=== PATIENT | male | born 2000 | race Caucasian/White ===

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

== ENCOUNTER 2022-02-08 12:24 | Observation (INO) | payer OTHER ==
[~2022-02-08] VITALS: Ht 177.8 cm; Wt 79.5 kg
[2022-02-08] MEDS ORDERED: ONDANSETRON 4MG 2ML VIAL IV ONE (14:15)
[2022-02-08] MEDS ORDERED: NS 2,390 ML in IV 1 EA IV ONE (14:15)
[2022-02-08 14:41] LABS: HEMATOCRIT 50.5 % (42.0-52.0); HEMOGLOBIN 17.1 g/dl (13.5-17.5); MEAN CORPUSCULAR HEMOGLOBIN 30.1 pg (27.0-33.0); MEAN CORPUSCULAR HGB CONC 33.9 g/dl (32.0-36.5); MEAN CORPUSCULAR VOLUME 88.9 fl (80.0-96.0); PLATELET COUNT, AUTOMATED 245 10^3/uL (150-450); RED BLOOD COUNT 5.68 10^6/uL (4.30-6.10); WHITE BLOOD COUNT 5.8 10^3/uL (4.0-10.0)
[2022-02-08 14:58] LABS: LIPASE 24 U/L (12-53)
[2022-02-08 15:00] LABS: ALBUMIN 4.3 G/DL (3.2-5.2); ALKALINE PHOSPHATASE 64 U/L (46-116); ALT/SGPT 19 U/L (7.0-40); AST/SGOT 11 U/L (<34); BILIRUBIN,DIRECT 0.4 MG/DL (<0.4); BILIRUBIN,TOTAL 1.2 MG/DL (0.3-1.2); BLOOD UREA NITROGEN 25 MG/DL (9-23); CALCIUM LEVEL 8.8 MG/DL (8.5-10.1); CARBON DIOXIDE LEVEL 26 MMOL/L (20-31); CHLORIDE LEVEL 99 MMOL/L (98-107); CREATININE FOR GFR 0.81 MG/DL (0.70-1.30); GLOMERULAR FILTRATION RATE > 60.0 (>60); GLUCOSE, FASTING 119 MG/DL (60-100); POTASSIUM SERUM 4.2 MMOL/L (3.5-5.1); SODIUM LEVEL 137 MMOL/L (136-145); TOTAL PROTEIN 7.1 G/DL (5.7-8.2)
[2022-02-08 15:15] LABS: RSV AMPLIFICATION NEGATIVE (NEGATIVE)
[2022-02-08 15:16] LABS: ATYPICAL LYMPH 3 % (0-5); LYMPHOCYTES 7 % (16-44); METAMYELOCYTES 1 % (0-0); MONOCYTES 15 % (0-5); NEUTROPHILS 7 % (28-66)
[2022-02-08 15:19] LABS: PLATELET ESTIMATE NORMAL (NORMAL)
[2022-02-08] MEDS ORDERED: ISOVUE-370 76% 100ML VIAL As Ordered ONE (15:50)
[2022-02-08] MEDS ORDERED: HOME MED LIST COMPLETE! XX SCH (17:45)
[2022-02-08] MEDS ORDERED: ONDANSETRON 4MG 2ML VIAL IV PRN (17:55)
[2022-02-08] MEDS ORDERED: AZITHROMYCIN INJ 500 MG, VIAL MATE ADAPTER 1 EACH in NS 250 ML IV ONE (18:30)
[2022-02-08] MEDS: LR 1,000 ML IV SCH (18:45)
[2022-02-09] MEDS: LR 1,000 ML IV SCH (04:00)
[2022-02-09] MEDS ORDERED: AZITHROMYCIN INJ 500 MG, VIAL MATE ADAPTER 1 EACH in NS 250 ML IV ONE (07:10)
[2022-02-09] MEDS ORDERED: ONDANSETRON 4MG 2ML VIAL IV ONE (07:15)
[2022-02-09 07:30] VITALS: BP 124/58
[2022-02-09 07:34] LABS: HEMATOCRIT 42.6 % (42.0-52.0); MEAN CORPUSCULAR HEMOGLOBIN 30.5 pg (27.0-33.0); MEAN CORPUSCULAR VOLUME 89.7 fl (80.0-96.0); PLATELET COUNT, AUTOMATED 217 10^3/uL (150-450); RED BLOOD COUNT 4.75 10^6/uL (4.30-6.10); WHITE BLOOD COUNT 4.7 10^3/uL (4.0-10.0)
[2022-02-09 07:38] LABS: BLOOD UREA NITROGEN 16 MG/DL (9-23); CALCIUM LEVEL 8.1 MG/DL (8.5-10.1); CARBON DIOXIDE LEVEL 25 MMOL/L (20-31); CHLORIDE LEVEL 106 MMOL/L (98-107); CREATININE FOR GFR 0.79 MG/DL (0.70-1.30); GLOMERULAR FILTRATION RATE > 60.0 (>60); GLUCOSE, FASTING 89 MG/DL (60-100); HEMOGLOBIN 14.5 g/dl (13.5-17.5); SODIUM LEVEL 140 MMOL/L (136-145)
[2022-02-09 08:20] LABS: ATYPICAL LYMPH 4 % (0-5); BASOPHILS 1 % (0-1); LYMPHOCYTES 28 % (16-44); MONOCYTES 20 % (0-5); NEUTROPHILS 34 % (28-66)
[2022-02-09 08:22] LABS: PLATELET ESTIMATE NORMAL (NORMAL)
[2022-02-09] MEDS ORDERED: ONDA4TAB6 PO (08:40)
[2022-02-09] MEDS ORDERED: AZIT-12 PO (08:41)
[2022-02-09] MEDS ORDERED: ENOXAPARIN 40MG/0.4ML SYRINGE (J1650 PER 10MG) SC SCH (09:00)
== END 2022-02-09 10:02 | disposition home or self-care (01) ==
LOC: M ED 12:24 → EDBD 12:24 → M ED INP 12:25
PROVIDERS: ADMIT Internal Medicine; ATTEND Internal Medicine
DX: A04.0 Enteropathogenic Escherichia coli infection (principal); A08.4 Viral intestinal infection, unspecified; Z79.2 Long term (current) use of antibiotics
CPT/HCPCS: 36415; 74177; 80048; 80076; 83605; 83690; 85025; 87507; 87631; 93041; 96365; 96366; 96375; 96376; 99285; J0456; J2405